=== PATIENT | male | born 1990 | race Caucasian/White ===

== ENCOUNTER 2019-06-25 11:56 | Emergency (ER) | payer OTHER ==
[~2019-06-25] VITALS: Ht 167.6 cm; Wt 72.1 kg
[~2019-06-25 11:56] MED LIST: IBUP-1842 PO
[2019-06-25 12:13] VITALS: BP 108/67
--- NOTE | 2019-06-25 12:20 | NUR ---
C/O CLEAR DISCHARGE FROM [facility] WITH BURNING SENSATION X YESTERDAY. PATIENT ADMITS TO UNPROTECTED COITUS. VSS. AA0X4. BED IS DOWN, LOCKED, EBD RAIL X 1, ERMD TO SEE PT. HX--DENIES RX--NONE
--- NOTE | 2019-06-25 12:38 | NUR ---
DR SOLORZANO AT BEDSIDE
[2019-06-25] MEDS ORDERED: cefTRIAXone 250 MG in LIDOCAINE MPF 1% - 5 mL VIAL 0.9 ML IM ONE (12:45)
[2019-06-25] MEDS ORDERED: AZITHROMYCIN 250 MG TAB PO ONE (12:45)
--- NOTE | 2019-06-25 14:08 | NUR ---
Patient discharged with v/s stable. Written and verbal after care instructions given and explained. Patient alert, oriented and verbalized understanding of instructions. Ambulatory with steady gait. All questions addressed prior to discharge. ID band removed. Patient advised to follow up with PMD. Rx of TYLENOL/MOTRIN given. Patient educated on indication of medication including possible reaction and side effects. Opportunity to ask questions provided and answered.
[2019-06-25 14:09] VITALS: BP 128/86
== END 2019-06-25 14:08 | disposition home or self-care (01) ==
LOC: MED 11:56
DX: N34.2 Other urethritis (principal); Z79.1 Long term (current) use of non-steroidal anti-inflammatories (NSAID)
CPT/HCPCS: 81002; 96372; 99283; J0696; J2001

== ENCOUNTER 2020-12-30 15:38 | Emergency (ER) | payer OTHER ==
[~2020-12-30] VITALS: Ht 170.2 cm; Wt 76.2 kg
--- NOTE | 2020-12-30 15:43 | NUR ---
Moni eli in ED - 12/30/20 at 1546 by [email or web address] Patient ambulated to bed 12. RN evaluating the patient at bedside.
--- NOTE | 2020-12-30 15:44 | NUR ---
Patient ambulated to bed 10. RN evaluating the patient at bedside.
[2020-12-30 15:46] VITALS: BP 133/75
--- NOTE | 2020-12-30 15:57 | NUR ---
Dr. Burger is evaluating patient at bedside.
--- NOTE | 2020-12-30 16:02 | NUR ---
30 y/o M coming in from home with c/c sore throat x 2 days. Patient states sore throat and cough since yesterday morning. Pt denies any exposure to + Covid people. Pt states he has been taking OTC tea, sore throat spray, and syrup "Broncholin" for the sore throat; states positive relief. Patient denies N/V/D, fever, chills, weakness, fatigue, SOB, chest pain, abdominal pain. Pt is requesting blood work for chlamydia; states intimate partner tested positive for chlamydia on 12/29; pt denies any penile discharge or any other urinary symptoms at this time. Pt placed onto blood pressure cuff, pulse oximetry. Respirations even/unlabored. Bed locked in lowest position, side rails x1. PMH/Meds: Denies NKA Sx: Denies
[2020-12-30] MEDS ORDERED: cefTRIAXone 1,000 MG in LIDOCAINE MPF 1% 2.1 ML IM ONE (16:05)
[2020-12-30] MEDS ORDERED: AZITHROMYCIN 250 MG TAB PO ONE (16:05)
[2020-12-30] MEDS ORDERED: LIDOCAINE MPF 1% 5 ML ONE (16:12)
[2020-12-30] MEDS ORDERED: cefTRIAXone 1,000 MG VIAL ONE (16:12)
--- NOTE | 2020-12-30 16:26 | NUR ---
URINE, STREP, AND NOVEL SWAB COLLECTED AND GIVEN TO LAB
[2020-12-30] MEDS ORDERED: IBUP-2213 PO (17:43)
--- NOTE | 2020-12-30 17:50 | NUR ---
ERMD AT BEDSIDE EXPLAINING D/C INSTRUCTIONS
[2020-12-30 18:03] VITALS: BP 125/90
== END 2020-12-30 18:03 | disposition home or self-care (01) ==
LOC: MED 15:38
DX: J02.9 Acute pharyngitis, unspecified (principal); Z20.822 Contact with and (suspected) exposure to COVID-19; Z11.3 Encounter for screening for infections with a predominantly sexual mode of transmission
CPT/HCPCS: 87070; 87081; 87491; 96372; 99283; J0696; J2001; U0003

== ENCOUNTER 2022-09-05 18:56 | Emergency (ER) | payer OTHER ==
[~2022-09-05] VITALS: Ht 167.6 cm; Wt 77.1 kg
[~2022-09-05 18:56] MED LIST changes: +IBUP-2213 PO
[2022-09-05 19:14] VITALS: BP 120/72
--- NOTE | 2022-09-05 19:16 | NUR ---
32/M WALKED IN C/O DYSURIA AND YELLOW DISCHARGE ONSET 4DAYS. PT REPORTS BEING SEXUALLY ACTIVE WITH 1 PARTNER AND ALSO REPORTS HAVING UNPROTECTED SEX. DENIES BLOOD IN URINE. URINE COLLECTED. AAO4, AMBULATORY, VSS PMH: DENIES NKA
[2022-09-05] MEDS ORDERED: DOXY-690 PO (21:15)
[2022-09-05] MEDS ORDERED: cefTRIAXone 500 MG in LIDOCAINE MPF 1% 1 ML IM ONE (21:15)
[2022-09-05 21:28] LABS: APPEARANCE,URINE CLEAR (CLEAR); BILIRUBIN,URINE NEGATIVE (NEGATIVE); BLOOD, URINE NEGATIVE (NEGATIVE); COLOR,URINE YELLOW (YELLOW); LEUKOCYTE ESTERASE ,URINE TRACE (NEGATIVE); NITRITE, URINE NEGATIVE (NEGATIVE); UGLUCOSE NEGATIVE (NEGATIVE)
[2022-09-05 21:40] LABS: RBC,URINE 0-5 /HPF (0-5)
[2022-09-05 21:41] LABS: OTHER CASTS, URINE None Seen /LPF (None Seen); YEAST,URINE Few /HPF (None Seen)
[2022-09-05] MEDS ORDERED: cefTRIAXone 500 MG VIAL ONE (23:11)
[2022-09-05] MEDS ORDERED: LIDOCAINE MPF 1% 5 ML ONE (23:11)
== END 2022-09-05 23:16 | disposition home or self-care (01) ==
LOC: MED 18:56
DX: R36.9 Urethral discharge, unspecified (principal)
CPT/HCPCS: 81001; 87086; 87491; 96372; 99283; J0696; J2001